=== PATIENT | male | born 2000 | race Caucasian/White ===

== ENCOUNTER 2022-09-14 16:54 | Inpatient (IN) | payer OTHER ==
[2022-09-14] VITALS (25 sets, daily range): BP systolic 103–139; BP diastolic 56–99
[~2022-09-14] VITALS: Ht 188 cm; Wt 135.0 kg
[~2022-09-14 16:54] MED LIST: AMOXICILLIN500 MG OR; AMOXICILLIN500 MG PO; ANTIVERT PO; CEFDINIR300 MG PO; CEPHALEXIN250 MG/51 OR; ELIMITE5 % EX; FLOXIN OTIC0.3 % OT; FOCALIN10 MG PO; GEODON40 MG PO; HYDROXYZ HCL25 MG PO; ONDANSETRON4 MG PO; SINGULAIR10 MG PO
[2022-09-14 17:29] LABS: BASO% 0.8 % (0-3); HEMATOCRIT 40.3 % (39.0-50.0); LYMPH% 30.2 % (15-41); MEAN CORPUSCULAR HGB 28.3 pG CALC (26.0-32.0); MEAN CORPUSCULAR HGB CONC 34.7 g/dL CAL (32.0-36.0); MONO% 12.8 % (2-13); NEUT# 3.26 thou/uL (1.82-7.42); NEUT% 54.2 % (42-76); RED BLOOD COUNT 4.94 mill/uL (4.70-6.10); RED CELL DISTRI WIDTH 13.3 % (11.5-15.5)
[2022-09-14 17:31] LABS: MEAN CELL VOLUME 81.6 fL CALC (80.0-100.0)
[2022-09-14 17:45] LABS: ALBUMIN 4.3 g/dL (3.2-5.0); ANION GAP 11 (6-22 (CALC)); BUN 17 mg/dL (9-20); BUN/CREATININE RATIO 21 (12-20 (CALC)); CARBON DIOXIDE 21 mmol/l (22-30); CHLORIDE 111 mmol/l (95-108); CREATININE 0.8 mg/dL (0.7-1.3); ETHYL ALCOHOL 0 mg/dl (0-30); GFR FOR AFR.AMER. > 60 ML/MIN (>=60 (CALC)); GFR OTHER RACES > 60 ML/MIN (>=60 (CALC)); POTASSIUM 3.9 mmol/l (3.5-5.1); SODIUM 139 mmol/l (137-146); TOTAL PROTEIN 7.2 g/dL (6.3-8.2)
[2022-09-14 17:46] LABS: ALKALINE PHOSPHATASE 88 u/l (38-126); BILIRUBIN, TOTAL 0.6 mg/dL (0.0-1.4); SGOT/AST 68 u/l (17-59)
[2022-09-14] MEDS ORDERED: VITAMIN D1000 UNIT PO (23:58)
[2022-09-14] MEDS ORDERED: MELATONIN1 MG PO (23:59)
[2022-09-15] VITALS (27 sets, daily range): BP systolic 95–155; BP diastolic 45–93
[2022-09-15 11:08] LABS: BASO% 0.6 % (0-3); EOS% 2.4 % (0-8); HEMATOCRIT 42.2 % (39.0-50.0); HEMOGLOBIN 14.6 g/dl (14.0-18.0); LYMPH% 28.1 % (15-41); MEAN CELL VOLUME 81.2 fL CALC (80.0-100.0); MEAN CORPUSCULAR HGB 28.1 pG CALC (26.0-32.0); MEAN CORPUSCULAR HGB CONC 34.6 g/dL CAL (32.0-36.0); MONO% 6.4 % (2-13); NEUT# 2.92 thou/uL (1.82-7.42); NEUT% 62.5 % (42-76); RED BLOOD COUNT 5.2 mill/uL (4.70-6.10); RED CELL DISTRI WIDTH 13.1 % (11.5-15.5)
[2022-09-15 11:30] LABS: ANION GAP 12 (6-22 (CALC)); BUN 13 mg/dL (9-20); BUN/CREATININE RATIO 17 (12-20 (CALC)); CARBON DIOXIDE 22 mmol/l (22-30); CHLORIDE 106 mmol/l (95-108); CREATININE 0.8 mg/dL (0.7-1.3); GFR FOR AFR.AMER. > 60 ML/MIN (>=60 (CALC)); GFR OTHER RACES > 60 ML/MIN (>=60 (CALC)); POTASSIUM 3.8 mmol/l (3.5-5.1); SODIUM 137 mmol/l (137-146)
[2022-09-16] VITALS (11 sets, daily range): BP systolic 125–153; BP diastolic 65–96
[2022-09-16 05:53] LABS: BASO% 0.5 % (0-3); EOS% 1.4 % (0-8); HEMOGLOBIN 14.8 g/dl (14.0-18.0); IMMATURE GRANULOCYTES 0.1 % (0.0-5.0); LYMPH% 18.1 % (15-41); MEAN CELL VOLUME 80.6 fL CALC (80.0-100.0); MEAN CORPUSCULAR HGB 28.4 pG CALC (26.0-32.0); MEAN CORPUSCULAR HGB CONC 35.2 g/dL CAL (32.0-36.0); MONO% 11.9 % (2-13); NEUT# 5.7 thou/uL (1.82-7.42); RED BLOOD COUNT 5.21 mill/uL (4.70-6.10); RED CELL DISTRI WIDTH 13.3 % (11.5-15.5)
[2022-09-16 06:05] LABS: ALBUMIN 4.5 g/dL (3.2-5.0); ALKALINE PHOSPHATASE 87 u/l (38-126); ANION GAP 11 (6-22 (CALC)); BILIRUBIN, TOTAL 0.7 mg/dL (0.0-1.4); BUN 13 mg/dL (9-20); BUN/CREATININE RATIO 17 (12-20 (CALC)); CARBON DIOXIDE 21 mmol/l (22-30); CHLORIDE 108 mmol/l (95-108); CREATININE 0.8 mg/dL (0.7-1.3); GFR FOR AFR.AMER. > 60 ML/MIN (>=60 (CALC)); GFR OTHER RACES > 60 ML/MIN (>=60 (CALC)); POTASSIUM 4.3 mmol/l (3.5-5.1); SGOT/AST 50 u/l (17-59); SODIUM 135 mmol/l (137-146)
[2022-09-17] VITALS (26 sets, daily range): BP systolic 91–171; BP diastolic 57–151
[2022-09-18] VITALS (24 sets, daily range): BP systolic 106–150; BP diastolic 49–89
[2022-09-18 06:25] LABS: BASO% 0.7 % (0-3); EOS% 2.9 % (0-8); HEMOGLOBIN 15.5 g/dl (14.0-18.0); IMMATURE GRANULOCYTES 0.1 % (0.0-5.0); LYMPH% 33.5 % (15-41); MEAN CELL VOLUME 81.9 fL CALC (80.0-100.0); MEAN CORPUSCULAR HGB 28.9 pG CALC (26.0-32.0); MEAN CORPUSCULAR HGB CONC 35.2 g/dL CAL (32.0-36.0); MONO% 14.1 % (2-13); NEUT# 3.49 thou/uL (1.82-7.42); NEUT% 48.7 % (42-76); RED BLOOD COUNT 5.37 mill/uL (4.70-6.10); RED CELL DISTRI WIDTH 13.4 % (11.5-15.5)
[2022-09-18 06:50] LABS: ALBUMIN 4.6 g/dL (3.2-5.0); ALKALINE PHOSPHATASE 87 u/l (38-126); BUN 13 mg/dL (9-20); BUN/CREATININE RATIO 14 (12-20 (CALC)); CHLORIDE 106 mmol/l (95-108); CREATININE 0.9 mg/dL (0.7-1.3); GFR FOR AFR.AMER. > 60 ML/MIN (>=60 (CALC)); GFR OTHER RACES > 60 ML/MIN (>=60 (CALC)); POTASSIUM 4.2 mmol/l (3.5-5.1); SGOT/AST 44 u/l (17-59); SODIUM 139 mmol/l (137-146); TOTAL PROTEIN 7.6 g/dL (6.3-8.2)
[2022-09-18 07:02] LABS: ANION GAP 10 (6-22 (CALC)); BILIRUBIN, TOTAL 0.4 mg/dL (0.0-1.4); CARBON DIOXIDE 27 mmol/l (22-30)
[2022-09-19] VITALS (9 sets, daily range): BP systolic 108–144; BP diastolic 64–83
[2022-09-19] MEDS ORDERED: DILANTIN100 MG PO (12:24)
== END 2022-09-19 13:35 | disposition home or self-care (01) | DRG 101 ==
LOC: ED 16:54 → ED-I 19:00 → ED 19:18 → ICU 19:19 → MS2 09-16 01:00 → ICU 09-16 23:24
PROVIDERS: Family Medicine; Nurse Practitioner Family; ADMIT Internal Medicine; ATTEND Internal Medicine
DX: G40.009 Localization-related (focal) (partial) idiopathic epilepsy and epileptic syndromes with seizures of localized onset, not intractable, without status epilepticus (principal); T42.6X6A Underdosing of other antiepileptic and sedative-hypnotic drugs, initial encounter; R00.0 Tachycardia, unspecified; F90.9 Attention-deficit hyperactivity disorder, unspecified type; F41.9 Anxiety disorder, unspecified; F17.290 Nicotine dependence, other tobacco product, uncomplicated; S49.92XA Unspecified injury of left shoulder and upper arm, initial encounter; W19.XXXA Unspecified fall, initial encounter; Y92.239 Unspecified place in hospital as the place of occurrence of the external cause; Z91.128 Patient's intentional underdosing of medication regimen for other reason; Z20.822 Contact with and (suspected) exposure to COVID-19
CPT/HCPCS: J1953; J2060

== ENCOUNTER 2022-10-25 16:28 | Emergency (ER) | payer SELFPAY ==
[~2022-10-25] VITALS: Ht 188 cm; Wt 136.0 kg
[~2022-10-25 16:28] MED LIST changes: +DILANTIN100 MG PO; +MELATONIN1 MG PO; +VITAMIN D1000 UNIT PO
[2022-10-25 16:37] VITALS: BP 133/78
[2022-10-25 16:45] VITALS: BP 135/73
[2022-10-25 17:01] VITALS: BP 133/66
[2022-10-25 17:35] LABS: BASO% 0.8 % (0-3); EOS% 2.3 % (0-8); HEMATOCRIT 45.9 % (39.0-50.0); HEMOGLOBIN 15.1 g/dl (14.0-18.0); IMMATURE GRANULOCYTES 0.2 % (0.0-5.0); LYMPH% 26.8 % (15-41); MEAN CELL VOLUME 81.4 fL CALC (80.0-100.0); MEAN CORPUSCULAR HGB 26.8 pG CALC (26.0-32.0); MEAN CORPUSCULAR HGB CONC 32.9 g/dL CAL (32.0-36.0); MONO% 13.2 % (2-13); NEUT# 3.49 thou/uL (1.82-7.42); NEUT% 56.7 % (42-76); RED BLOOD COUNT 5.64 mill/uL (4.70-6.10)
[2022-10-25 17:39] LABS: ALBUMIN 4.9 g/dL (3.2-5.0); ALKALINE PHOSPHATASE 95 u/l (38-126); ANION GAP 11 (6-22 (CALC)); BILIRUBIN, TOTAL 0.4 mg/dL (0.2-1.3); BUN 14 mg/dL (9-20); BUN/CREATININE RATIO 17 (12-20 (CALC)); CARBON DIOXIDE 27 mmol/l (22-30); CHLORIDE 105 mmol/l (95-108); CREATININE 0.8 mg/dL (0.7-1.3); GFR FOR AFR.AMER. > 60 ML/MIN (>=60 (CALC)); GFR OTHER RACES > 60 ML/MIN (>=60 (CALC)); POTASSIUM 4.1 mmol/l (3.5-5.1); SGOT/AST 49 u/l (17-59); SODIUM 138 mmol/l (137-146); TOTAL PROTEIN 7.8 g/dL (6.3-8.2)
[2022-10-25 18:49] LABS: URINE BILIRUBIN - DIPSTICK NEGATIVE (NEGATIVE); URINE BLOOD DIPSTICK NEGATIVE (NEGATIVE); URINE COLOR YELLOW; URINE GLUCOSE - DIPSTICK NEGATIVE (NEGATIVE); URINE KETONE NEGATIVE (NEGATIVE); URINE LEUK ESTERASE NEGATIVE (NEGATIVE); URINE PH 5.5 (4.5-8.0); URINE PROTEIN - DIPSTICK NEGATIVE (NEG-TRACE); URINE SPECIFIC GRAVITY 1.025; URINE UROBILINOGEN - DIPSTICK 0.2 E.U./dL (0.2)
[2022-10-25 18:55] LABS: URINE NITRITE - DIPSTICK NEGATIVE (Negative)
[2022-10-25] MEDS ORDERED: DILANTIN100 MG PO (20:08)
[2022-10-25 20:31] VITALS: BP 133/66
== END 2022-10-25 20:33 | disposition home or self-care (01) | DRG 101 ==
LOC: ED 16:28
PROVIDERS: Nurse Practitioner
DX: G40.909 Epilepsy, unspecified, not intractable, without status epilepticus (principal)

== ENCOUNTER 2022-12-09 00:19 | Emergency (ER) | payer SELFPAY ==
[~2022-12-09] VITALS: Ht 190.5 cm; Wt 136.0 kg
[2022-12-09] VITALS (7 sets, daily range): BP systolic 121–148; BP diastolic 67–95
[2022-12-09] MEDS ORDERED: DILANTIN100 MG PO ×2 (00:50→00:51)
[2022-12-09] MEDS ORDERED: TEGRETOL PO (00:55)
[2022-12-09 01:25] LABS: HEMATOCRIT 40.4 % (39.0-50.0); HEMOGLOBIN 13.9 g/dl (14.0-18.0); IMMATURE GRANULOCYTES 0.5 % (0.0-5.0); LYMPH% 39.8 % (15-41); MEAN CELL VOLUME 81.1 fL CALC (80.0-100.0); MEAN CORPUSCULAR HGB 27.9 pG CALC (26.0-32.0); MEAN CORPUSCULAR HGB CONC 34.4 g/dL CAL (32.0-36.0); NEUT# 2.18 thou/uL (1.82-7.42); NEUT% 54.7 % (42-76); RED BLOOD COUNT 4.98 mill/uL (4.70-6.10); RED CELL DISTRI WIDTH 12.8 % (11.5-15.5)
[2022-12-09 01:42] LABS: ALBUMIN 4.6 g/dL (3.2-5.0); ALKALINE PHOSPHATASE 103 u/l (38-126); AMYLASE 46 u/l (30-110); ANION GAP 13 (6-22 (CALC)); BUN 19 mg/dL (9-20); BUN/CREATININE RATIO 24 (12-20 (CALC)); CARBON DIOXIDE 25 mmol/l (22-30); CHLORIDE 104 mmol/l (95-108); CREATININE 0.8 mg/dL (0.7-1.3); GFR FOR AFR.AMER. > 60 ML/MIN (>=60 (CALC)); GFR OTHER RACES > 60 ML/MIN (>=60 (CALC)); LIPASE 39 u/l (23-300); POTASSIUM 3.9 mmol/l (3.5-5.1); SGOT/AST 56 u/l (17-59); SODIUM 138 mmol/l (137-146); TOTAL PROTEIN 6.9 g/dL (6.3-8.2)
[2022-12-09 01:59] LABS: BILIRUBIN, TOTAL 0.2 mg/dL (0.2-1.3)
[2022-12-09] MEDS ORDERED: ONDANSETRON4 MG PO (02:03)
[2022-12-09] MEDS ORDERED: PREVACID30 M1 PO (02:03)
== END 2022-12-09 02:45 | disposition home or self-care (01) | DRG 392 ==
LOC: ED 00:19
PROVIDERS: Emergency Medicine
DX: K29.70 Gastritis, unspecified, without bleeding (principal); F17.210 Nicotine dependence, cigarettes, uncomplicated; G40.909 Epilepsy, unspecified, not intractable, without status epilepticus; K21.9 Gastro-esophageal reflux disease without esophagitis
CPT/HCPCS: S0164

== ENCOUNTER 2022-12-22 16:08 | Emergency (ER) | payer SELFPAY ==
[2022-12-22] VITALS (25 sets, daily range): BP systolic 97–147; BP diastolic 55–101
[~2022-12-22] VITALS: Ht 190.5 cm; Wt 120.2 kg
[~2022-12-22 16:08] MED LIST changes: +PREVACID30 M1 PO; +TEGRETOL PO
[2022-12-22 16:51] LABS: BASO% 0.5 % (0-3); HEMATOCRIT 43.7 % (39.0-50.0); HEMOGLOBIN 15.3 g/dl (14.0-18.0); LYMPH% 25.4 % (15-41); MONO% 13.8 % (2-13); NEUT# 4.72 thou/uL (1.82-7.42); NEUT% 53.9 % (42-76); RED BLOOD COUNT 5.46 mill/uL (4.70-6.10)
[2022-12-22 17:04] LABS: ALBUMIN 4.9 g/dL (3.2-5.0); ALKALINE PHOSPHATASE 103 u/l (38-126); ANION GAP 17 (6-22 (CALC)); BILIRUBIN, TOTAL 0.3 mg/dL (0.2-1.3); BUN 13 mg/dL (9-20); BUN/CREATININE RATIO 15 (12-20 (CALC)); CARBON DIOXIDE 21 mmol/l (22-30); CHLORIDE 105 mmol/l (95-108); CREATININE 0.8 mg/dL (0.7-1.3); GFR FOR AFR.AMER. > 60 ML/MIN (>=60 (CALC)); GFR OTHER RACES > 60 ML/MIN (>=60 (CALC)); MAGNESIUM 1.8 mg/dL (1.6-2.3); POTASSIUM 4.8 mmol/l (3.5-5.1); SGOT/AST 42 u/l (17-59); SODIUM 138 mmol/l (137-146); TOTAL PROTEIN 7.7 g/dL (6.3-8.2)
[2022-12-22 17:08] LABS: IMMATURE GRANULOCYTES 6.4 % (0.0-5.0)
== END 2022-12-22 22:14 | DRG 101 ==
LOC: ED 16:08 → ED-I 17:50 → ED 22:14
PROVIDERS: Emergency Medicine
DX: G40.219 Localization-related (focal) (partial) symptomatic epilepsy and epileptic syndromes with complex partial seizures, intractable, without status epilepticus (principal); F17.200 Nicotine dependence, unspecified, uncomplicated
CPT/HCPCS: J1953; J2060

== ENCOUNTER 2023-01-11 17:48 | Emergency (ER) | payer SELFPAY ==
[~2023-01-11] VITALS: Ht 190.5 cm; Wt 133.0 kg
[2023-01-11] VITALS (13 sets, daily range): BP systolic 120–165; BP diastolic 56–90
[2023-01-11 18:06] LABS: EOS% 4.5 % (0-8); HEMATOCRIT 43.6 % (39.0-50.0); HEMOGLOBIN 15.3 g/dl (14.0-18.0); IMMATURE GRANULOCYTES 0.3 % (0.0-5.0); LYMPH% 32.4 % (15-41); MEAN CELL VOLUME 80.4 fL CALC (80.0-100.0); MEAN CORPUSCULAR HGB 28.2 pG CALC (26.0-32.0); MEAN CORPUSCULAR HGB CONC 35.1 g/dL CAL (32.0-36.0); MONO% 12.6 % (2-13); NEUT# 3.36 thou/uL (1.82-7.42); NEUT% 49.2 % (42-76); RED BLOOD COUNT 5.42 mill/uL (4.70-6.10); RED CELL DISTRI WIDTH 13.4 % (11.5-15.5)
[2023-01-11 18:20] LABS: ALBUMIN 4.9 g/dL (3.2-5.0); ALKALINE PHOSPHATASE 91 u/l (38-126); ANION GAP 15 (6-22 (CALC)); BILIRUBIN, TOTAL 0.2 mg/dL (0.2-1.3); BUN 15 mg/dL (9-20); BUN/CREATININE RATIO 17 (12-20 (CALC)); CARBON DIOXIDE 22 mmol/l (22-30); CHLORIDE 106 mmol/l (95-108); CREATININE 0.9 mg/dL (0.7-1.3); ETHYL ALCOHOL 0 mg/dl (0-30); GFR FOR AFR.AMER. > 60 ML/MIN (>=60 (CALC)); GFR OTHER RACES > 60 ML/MIN (>=60 (CALC)); SGOT/AST 43 u/l (17-59); SODIUM 139 mmol/l (137-146); TOTAL PROTEIN 7.4 g/dL (6.3-8.2)
[2023-01-11] MEDS ORDERED: CARBAMAZEPIN400 MG PO (21:03)
== END 2023-01-11 21:19 | disposition home or self-care (01) | DRG 101 ==
LOC: ED 17:48
PROVIDERS: Family Medicine
DX: G40.909 Epilepsy, unspecified, not intractable, without status epilepticus (principal)
CPT/HCPCS: J2060

== ENCOUNTER 2023-01-16 13:09 | Emergency (ER) | payer SELFPAY ==
[2023-01-16] VITALS (25 sets, daily range): BP systolic 100–188; BP diastolic 60–119
[~2023-01-16] VITALS: Ht 190.5 cm; Wt 120.0 kg
[~2023-01-16 13:09] MED LIST changes: +CARBAMAZEPIN400 MG PO
[2023-01-16 13:54] LABS: EOS% 2.4 % (0-8); HEMATOCRIT 46.8 % (39.0-50.0); HEMOGLOBIN 15.8 g/dl (14.0-18.0); IMMATURE GRANULOCYTES 0.1 % (0.0-5.0); LYMPH% 28.9 % (15-41); MEAN CELL VOLUME 81.5 fL CALC (80.0-100.0); MEAN CORPUSCULAR HGB 27.5 pG CALC (26.0-32.0); MEAN CORPUSCULAR HGB CONC 33.8 g/dL CAL (32.0-36.0); NEUT# 4.02 thou/uL (1.82-7.42); NEUT% 55.6 % (42-76); RED BLOOD COUNT 5.74 mill/uL (4.70-6.10); RED CELL DISTRI WIDTH 13.2 % (11.5-15.5)
[2023-01-16 14:11] LABS: ALBUMIN 5.2 g/dL (3.2-5.0); ALKALINE PHOSPHATASE 112 u/l (38-126); ANION GAP 20 (6-22 (CALC)); BUN 19 mg/dL (9-20); BUN/CREATININE RATIO 21 (12-20 (CALC)); CARBON DIOXIDE 18 mmol/l (22-30); CHLORIDE 105 mmol/l (95-108); CREATININE 0.9 mg/dL (0.7-1.3); GFR FOR AFR.AMER. > 60 ML/MIN (>=60 (CALC)); GFR OTHER RACES > 60 ML/MIN (>=60 (CALC)); POTASSIUM 4.1 mmol/l (3.5-5.1); SGOT/AST 56 u/l (17-59); SODIUM 139 mmol/l (137-146); TOTAL PROTEIN 7.8 g/dL (6.3-8.2)
[2023-01-16 14:12] LABS: BILIRUBIN, TOTAL 0.4 mg/dL (0.2-1.3)
[2023-01-16] MEDS ORDERED: DILANTIN100 MG PO (14:42)
[2023-01-16] MEDS ORDERED: LANSOPRAZOLE30 MG PO (14:42)
[2023-01-16] MEDS ORDERED: PAROXETINE HCL20 MG PO (14:43)
--- NOTE | 2023-01-16 14:43 | NUR ---
ET TUBE ADVANCED TO 25@ LIP BY DR. ARZOLA.
[2023-01-16] MEDS ORDERED: ALPRAZOLAM0.5 M2 PO (14:44)
[2023-01-16] MEDS ORDERED: LEVETIRACETAM1000 MG PO (14:44)
[2023-01-16] MEDS ORDERED: ESCITALOPRAM OX10 MG PO (14:45)
== END 2023-01-16 16:59 | disposition short-term general hospital (02) | DRG 101 ==
LOC: ED 13:09
PROVIDERS: Family Medicine
PROC: 0BH17EZ Insertion of Endotracheal Airway into Trachea, Via Natural or Artificial Opening (ICD-10-PCS; principal; 2023-01-16)
PROC: 5A1935Z Respiratory Ventilation, Less than 24 Consecutive Hours (ICD-10-PCS; 2023-01-16)
PROC: 05HM33Z Insertion of Infusion Device into Right Internal Jugular Vein, Percutaneous Approach (ICD-10-PCS; 2023-01-16)
DX: G40.901 Epilepsy, unspecified, not intractable, with status epilepticus (principal); F17.200 Nicotine dependence, unspecified, uncomplicated
CPT/HCPCS: J2250

== ENCOUNTER 2023-01-26 21:38 | Emergency (ER) | payer SELFPAY ==
[2023-01-26] VITALS (10 sets, daily range): BP systolic 122–163; BP diastolic 74–94
[~2023-01-26] VITALS: Ht 190.5 cm; Wt 100.0 kg
[~2023-01-26 21:38] MED LIST changes: +ALPRAZOLAM0.5 M2 PO; +ESCITALOPRAM OX10 MG PO; +LANSOPRAZOLE30 MG PO; +LEVETIRACETAM1000 MG PO; +PAROXETINE HCL20 MG PO
[2023-01-26 22:06] LABS: BASO% 0.8 % (0-3); EOS% 2.1 % (0-8); HEMATOCRIT 42.2 % (39.0-50.0); HEMOGLOBIN 14.5 g/dl (14.0-18.0); IMMATURE GRANULOCYTES 0.2 % (0.0-5.0); LYMPH% 28.8 % (15-41); MEAN CELL VOLUME 81.3 fL CALC (80.0-100.0); MEAN CORPUSCULAR HGB 27.9 pG CALC (26.0-32.0); MEAN CORPUSCULAR HGB CONC 34.4 g/dL CAL (32.0-36.0); MONO% 11.7 % (2-13); NEUT# 4.93 thou/uL (1.82-7.42); NEUT% 56.4 % (42-76); RED BLOOD COUNT 5.19 mill/uL (4.70-6.10); RED CELL DISTRI WIDTH 12.5 % (11.5-15.5)
[2023-01-26 22:20] LABS: ALBUMIN 4.5 g/dL (3.2-5.0); ALKALINE PHOSPHATASE 115 u/l (38-126); BUN 14 mg/dL (9-20); BUN/CREATININE RATIO 19 (12-20 (CALC)); CHLORIDE 105 mmol/l (95-108); CREATININE 0.8 mg/dL (0.7-1.3); GFR FOR AFR.AMER. > 60 ML/MIN (>=60 (CALC)); GFR OTHER RACES > 60 ML/MIN (>=60 (CALC)); POTASSIUM 4.1 mmol/l (3.5-5.1); SGOT/AST 34 u/l (17-59); SODIUM 138 mmol/l (137-146); TOTAL PROTEIN 7.3 g/dL (6.3-8.2)
[2023-01-26 22:22] LABS: ANION GAP 13 (6-22 (CALC)); BILIRUBIN, TOTAL 0.2 mg/dL (0.2-1.3); CARBON DIOXIDE 24 mmol/l (22-30)
[2023-01-26 22:31] LABS: URINE BILIRUBIN - DIPSTICK NEGATIVE (NEGATIVE); URINE BLOOD DIPSTICK NEGATIVE (NEGATIVE); URINE COLOR YELLOW; URINE GLUCOSE - DIPSTICK NEGATIVE (NEGATIVE); URINE KETONE NEGATIVE (NEGATIVE); URINE LEUK ESTERASE NEGATIVE (NEGATIVE); URINE PROTEIN - DIPSTICK NEGATIVE (NEG-TRACE); URINE SPECIFIC GRAVITY 1.025; URINE UROBILINOGEN - DIPSTICK 0.2 E.U./dL (0.2)
[2023-01-26 22:32] LABS: URINE NITRITE - DIPSTICK NEGATIVE (Negative)
[2023-01-26] MEDS ORDERED: DILANTIN100 MG PO (23:57)
[2023-01-27 00:01] VITALS: BP 117/74
[2023-01-27 00:16] VITALS: BP 116/72
[2023-01-27 00:31] VITALS: BP 116/64
[2023-01-27 01:10] VITALS: BP 116/64
== END 2023-01-27 01:15 | disposition short-term general hospital (02) | DRG 101 ==
LOC: ED 21:38
PROVIDERS: Emergency Medicine
DX: G40.409 Other generalized epilepsy and epileptic syndromes, not intractable, without status epilepticus (principal); F17.200 Nicotine dependence, unspecified, uncomplicated; Z20.822 Contact with and (suspected) exposure to COVID-19